=== PATIENT | male | born 1965 | race African-American/Black ===

== ENCOUNTER 2018-04-22 | Emergency (ER) | payer OTHER ==
[~2018-04-22] VITALS: Ht 167.6 cm; Wt 95.3 kg
[2018-04-22 00:40] LABS: URINE BILIRUBIN NEGATIVE (Negative); URINE BLOOD NEGATIVE (Negative); URINE CLARITY CLEAR; URINE COLOR YELLOW; URINE GLUCOSE-RANDOM* NEGATIVE (Negative); URINE KETONES NEGATIVE (Negative); URINE LEUKOCYTES-REFLEX NEGATIVE (Negative); URINE NITRITE-REFLEX NEGATIVE (Negative); URINE PROTEIN (DIPSTICK) NEGATIVE (Negative); URINE SPECIFIC GRAVITY >= 1.030 (1.005-1.035)
[2018-04-22 00:42] LABS: ABSOLUTE NEUTROPHILS 2.2 thou/uL (1.4-8.2); BASOPHILS 0.4 % (0.0-2.0); EOSINOPHILS 1.9 % (0.0-3.0); HEMATOCRIT 41.7 % (42.0-52.0); HEMOGLOBIN 14.1 gm/dL (14.0-18.0); LYMPHOCYTES 55.2 % (24.0-44.0); MCH 27.7 pg (26.0-34.0); MCHC 33.7 g/dL (28.0-37.0); MCV 82.1 fL (80.0-100.0); PLATELET COUNT 292 thou/uL (150-400); POLYS 35.5 % (36.0-66.0); RBC 5.08 mil/uL (4.50-6.00); RDW 13.6 % (10.5-14.5); WBC 6.1 thou/uL (4.0-11.0)
[2018-04-22 00:44] LABS: CALCIUM 8.7 mg/dL (8.5-10.1); CREATININE 1.1 mg/dL (0.7-1.3); POTASSIUM 3.8 mmol/L (3.5-5.1)
[2018-04-22 00:49] LABS: ALBUMIN 3.9 g/dL (3.4-5.0); TOTAL BILIRUBIN 0.7 mg/dL (<0.1-1.0); TOTAL PROTEIN 7.8 g/dL (6.4-8.2)
[2018-04-22] MEDS ORDERED: TRAMADOL 50 MG50 MG PO ×2 (01:24)
[2018-04-22] MEDS ORDERED: METFORMIN HCL500 MG PO (01:25)
[2018-04-22] MEDS ORDERED: ZOCOR20 MG PO (01:25)
[2018-04-22] MEDS ORDERED: ASPIRIN81 M2 PO (01:25)
[2018-04-22] MEDS ORDERED: GLIPIZIDE 10 MG10 MG PO (01:25)
[2018-04-22] MEDS ORDERED: MORPHINE SULFAT15 M3 PO (02:17)
[2018-04-22] MEDS ORDERED: MIRALAX17 GM PO (02:17)
[2018-04-22] MEDS ORDERED: SENNA S TABLET1 EACH PO (02:17)
[2018-04-22 02:35] VITALS: BP 152/90
== END 2018-04-22 02:35 | disposition home or self-care (01) ==
LOC: ER
PROVIDERS: Emergency Medicine
DX: R10.9 Unspecified abdominal pain (principal); E11.9 Type 2 diabetes mellitus without complications; E78.5 Hyperlipidemia, unspecified

== ENCOUNTER 2018-06-21 06:00 | Emergency (ER) | payer OTHER ==
[~2018-06-21] VITALS: Ht 167.6 cm; Wt 97.5 kg
[~2018-06-21 06:00] MED LIST: ASPIRIN81 M2 PO; GLIPIZIDE 10 MG10 MG PO; METFORMIN HCL500 MG PO; MIRALAX17 GM PO; MORPHINE SULFAT15 M3 PO; SENNA S TABLET1 EACH PO; TRAMADOL 50 MG50 MG PO; ZOCOR20 MG PO
[2018-06-21 06:58] LABS: HEMATOCRIT 40.9 % (42.0-52.0); HEMOGLOBIN 13.8 gm/dL (14.0-18.0); MCH 27.4 pg (26.0-34.0); MCHC 33.7 g/dL (28.0-37.0); MCV 81.3 fL (80.0-100.0); PLATELET COUNT 253 thou/uL (150-400); RBC 5.03 mil/uL (4.50-6.00); RDW 13.5 % (10.5-14.5)
[2018-06-21 07:05] LABS: CALCIUM 8.5 mg/dL (8.5-10.1); CREATININE 1.2 mg/dL (0.7-1.3); POTASSIUM 3.7 mmol/L (3.5-5.1)
[2018-06-21 07:11] LABS: ALBUMIN 3.6 g/dL (3.4-5.0); TOTAL BILIRUBIN 0.4 mg/dL (<0.1-1.0); TOTAL PROTEIN 7.5 g/dL (6.4-8.2)
[2018-06-21 07:54] LABS: URINE BILIRUBIN NEGATIVE (Negative); URINE BLOOD NEGATIVE (Negative); URINE CLARITY CLEAR; URINE COLOR YELLOW; URINE GLUCOSE-RANDOM* NEGATIVE (Negative); URINE KETONES 1+ (Negative); URINE LEUKOCYTES-REFLEX NEGATIVE (Negative); URINE NITRITE-REFLEX NEGATIVE (Negative); URINE PROTEIN (DIPSTICK) TRACE (Negative); URINE SPECIFIC GRAVITY >= 1.030 (1.005-1.035); URINE UROBILINOGEN 0.2 E.U./dl (0.2-1.0)
[2018-06-21 08:16] LABS: AMP/METHAMP Negative (Negative); BARBITURATES Negative (Negative); BENZODIAZEPINES Negative (Negative); COCAINE Negative (Negative); METHADONE Negative (Negative); OPIATES Negative (Negative); PCP Negative (Negative)
[2018-06-21] MEDS ORDERED: ACETAMINOPHEN-1 EAC1 PO (08:35)
[2018-06-21] MEDS ORDERED: NAPROSYN500 MG PO (08:35)
[2018-06-21 08:45] VITALS: BP 140/82
[2018-06-21 08:47] LABS: ABSOLUTE NEUTROPHILS 1.1 thou/uL (1.4-8.2); PLATELET ESTIMATE NORMAL
== END 2018-06-21 09:04 | disposition home or self-care (01) ==
LOC: ER 06:00
PROVIDERS: Emergency Medicine
DX: B34.9 Viral infection, unspecified (principal); R19.7 Diarrhea, unspecified; R51 Headache; M79.1 Myalgia; J06.9 Acute upper respiratory infection, unspecified; E11.9 Type 2 diabetes mellitus without complications; E78.5 Hyperlipidemia, unspecified

== ENCOUNTER 2020-01-09 02:24 | Inpatient (IN) | payer OTHER ==
[~2020-01-09] VITALS: Ht 167.6 cm; Wt 97.5 kg
[~2020-01-09 02:24] MED LIST changes: +ACETAMINOPHEN-1 EAC1 PO; +NAPROSYN500 MG PO
[2020-01-09 02:26] VITALS: BP 204/113
[2020-01-09 03:11] LABS: ABSOLUTE NEUTROPHILS 2.8 thou/uL (1.4-8.2); BASOPHILS 0.5 % (0.0-2.0); EOSINOPHILS 1.5 % (0.0-3.0); HEMATOCRIT 42.2 % (42.0-52.0); HEMOGLOBIN 13.6 gm/dL (14.0-18.0); LYMPHOCYTES 45.4 % (24.0-44.0); MCH 26.8 pg (26.0-34.0); MCHC 32.2 g/dL (28.0-37.0); MCV 83.2 fL (80.0-100.0); MONOCYTES 8.2 % (1.0-8.0); PLATELET COUNT 333 thou/uL (150-400); POLYS 44.4 % (36.0-66.0); RBC 5.07 mil/uL (4.50-6.00); RDW 13.5 % (10.5-14.5); WBC 6.3 thou/uL (4.0-11.0)
[2020-01-09 03:18] LABS: ANION GAP 7 mmol/L (7-16); BUN 12 mg/dL (7-18); CALCIUM 9.3 mg/dL (8.5-10.1); CHLORIDE 95 mmol/L (98-107); CO2 34 mmol/L (21-32); CREATININE 1.3 mg/dL (0.7-1.3); GLUCOSE 239 mg/dL (74-106); POTASSIUM 3.8 mmol/L (3.5-5.1); SODIUM 136 mmol/L (136-145)
[2020-01-09 03:28] LABS: ALBUMIN 3.8 g/dL (3.4-5.0); DIRECT BILIRUBIN 0.1 mg/dL (<0.1-0.2); LIPASE 237 U/L (73-393); SGOT 14 U/L (15-37); SGPT 15 U/L (30-65); TOTAL BILIRUBIN 0.8 mg/dL (<0.1-1.0); TROPONIN-I <0.06 ng/mL (<0.06)
[2020-01-09 06:03] VITALS: BP 153/87
[2020-01-09 06:52] VITALS: BP 153/92
[2020-01-09 08:18] VITALS: BP 160/92
--- NOTE | 2020-01-09 10:50 | NUR ---
PT ADMITTED FROM THE ER AT 0730. A&Ox4. CENTRAL LOWER ABDOMINAL PAIN THAT RAIDIATES UP RATED AT A 6. PT NPO. GI CONSULTED AND PT WILL HAVE A EGD THIS MORNING. ACHS WITH LOW SLIDING SCALE. ADMISSION COMPLETE. MONEY SENT TO SECURITY. UP INDEPENDENTLY. CALL LIGHT IN REACH.
--- NOTE | 2020-01-09 12:54 | EKG ---
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
[2020-01-09 16:14] VITALS: BP 171/105
[2020-01-09 21:45] VITALS: BP 136/83
[2020-01-10 03:20] VITALS: BP 152/99
--- NOTE | 2020-01-10 05:20 | NUR ---
PT AMBULATING TO BATHROOM INDEPENDENTLY AND IS TOLERATING WELL. FENTANYL PROVIDING PAIN RELIEF. DENIES NAUSEA. RESTING COMFORTABLY. NO NEEDS VOICED. CALL LIGHT WITHIN REACH. FREQUENT OBSERVATION.
[2020-01-10 06:35] LABS: HEMATOCRIT 39.1 % (42.0-52.0); HEMOGLOBIN 12.7 gm/dL (14.0-18.0); MCH 26.9 pg (26.0-34.0); MCHC 32.6 g/dL (28.0-37.0); MCV 82.6 fL (80.0-100.0); RBC 4.73 mil/uL (4.50-6.00); RDW 13.8 % (10.5-14.5)
[2020-01-10 06:45] LABS: CALCIUM 8.4 mg/dL (8.5-10.1); POTASSIUM 3.7 mmol/L (3.5-5.1)
[2020-01-10 06:52] LABS: ALBUMIN 3.2 g/dL (3.4-5.0); DIRECT BILIRUBIN 0.1 mg/dL (<0.1-0.2); TOTAL BILIRUBIN 0.8 mg/dL (<0.1-1.0); TOTAL PROTEIN 6.3 g/dL (6.4-8.2)
[2020-01-10 08:26] VITALS: BP 147/91
--- NOTE | 2020-01-10 10:14 | HC ---
[facility] [place] [address] CONSULTATION Name: ZO VARGAS Room #: 434-P ADM IN M.R.#: [id number] Admission: 01/09/20 Attend Phys: Nelson Milton MD Discharge: Date of : 67 Report #: [id number] THIS REPORT FOR: cc: [facility] - Clinic physician unknown [facility] - Clinic physician unknown Gomez Cortés MD ~ CC: Dr. Mccracken [facility] unknown Nelson Milton DATE OF SERVICE: 01/09/2020 HISTORY OF PRESENT ILLNESS: The patient is a 54-year-old male with complaints of midepigastric abdominal pain as well as pain that radiated into the back over the last week. This became progressively worse to the point where he was evaluated in the Emergency Room. He underwent a CT scan of the abdomen and pelvis earlier this morning, which showed mild fatty infiltration of the liver, gallbladder and spleen are unremarkable. Mild peripancreatic edema at the level of the pancreatic head and slight edema along the posterior aspect of the second portion of the duodenum suggesting manifestations of mild acute pancreatitis, although duodenitis could also give the same appearance. The patient does report intermittent heartburn symptoms. He denies any dysphagia. No previous history of upper endoscopy at least for many years. He does take aspirin on a regular basis. He denies any fevers or chills. No chest pain or shortness of breath. No previous history of pancreatitis. His lipase on admission is normal at 237. The patient reports taking Tums on a p.r.n. basis for heartburn. He denies any blood in his stools. He does complain of constipation more recently in the last few weeks. No history of colonoscopy. The patient is feeling better today, having much less pain. PAST MEDICAL HISTORY: Diabetes, previous history of kidney stone, degenerative joint disease. MEDICATIONS ON ADMISSION: Metformin, aspirin 81 mg, Glucotrol. REVIEW OF SYSTEMS: As per HPI. FAMILY HISTORY: Negative for colon cancer. SOCIAL HISTORY: He denies any smoking history. Reports rare alcohol use. PHYSICAL EXAMINATION: VITAL SIGNS: Temperature is 97.9, pulse 69, blood pressure 160/92, respiratory rate is 17. GENERAL: He is alert and oriented x3, in no acute distress. HEENT: Sclerae nonicteric. Oropharynx, clear. [address] [address] CONSULTATION Name: ZO VARGAS Room #: 434-P [facility] IN M.R.#: [id number] Admission: 01/09/20 Attend Phys: Nelson Milton MD Discharge: Date of : 67 Report #: [id number] NECK: Supple, without lymphadenopathy. CARDIOVASCULAR: Regular rate and rhythm. CHEST: Clear to auscultation bilaterally. ABDOMEN: Soft. He is mildly tender to palpation in the midepigastrium, nondistended, normoactive bowel sounds. EXTREMITIES: No cyanosis, clubbing, or edema. LABORATORY DATA: Sodium 136, potassium 3.8, chloride 95, bicarbonate 34, BUN 12, creatinine 1.3, glucose 239. AST 14, lipase 237, total bilirubin 0.8, alkaline phosphatase 113, ALT is 15, total protein 8.0, albumin 3.8. WBC is 6.3, hemoglobin 13.6, platelet count is 333. ASSESSMENT AND PLAN: Mid epigastric abdominal pain. The patient with possible pancreatitis changes on CT, however, lipase is normal, also possible duodenitis. He does have intermittent heartburn symptoms and is on aspirin on a daily basis increasing chance for possible peptic ulcer disease. We therefore discussed proceeding with an upper endoscopy next today for further evaluation. Agree with PPI therapy, which has already been started. I will make further recommendations after endoscopy. Thank you for allowing me to participate in his care. <ELECTRONICALLY SIGNED> By: Gomez Cortés MD 01/10/20 1014 1120 1213 Gomez Cortés MD /nt
--- NOTE | 2020-01-10 10:14 | P ---
[facility] [place] [address] PROCEDURE REPORT Name: ZO VARGAS Room #: 434-P ADM IN M.R.#: [id number] Admission: 01/09/20 Attend Phys: Nelson Milton MD Discharge: Date of : 67 Report #: [id number] THIS REPORT FOR: cc: [facility] - Clinic physician unknown [facility] - Clinic physician unknown Gomez Cortés MD ~ CC: Dr. Mccracken [facility] unknown Nelson Milton DATE OF SERVICE: 01/09/2020 PROCEDURE PERFORMED: Upper endoscopy with biopsies. HISTORY OF PRESENT ILLNESS: The patient is a 54-year-old male with mid epigastric abdominal pain ongoing for approximately 1 week, has become progressively worse. CT scan of the abdomen and pelvis on admission showing possible mild pancreatitis, possible duodenitis. Patient does report intermittent heartburn symptoms, takes Tums on a p.r.n. basis, also on aspirin. Denies any dysphagia. Lipase was normal. DESCRIPTION OF PROCEDURE: The risks and benefits of the procedure were explained to the patient, those risks including but not limited to bleeding, perforation and the risk of sedation. He understood these risks and gave informed consent. Sedation was given using propofol per anesthesia. Next, using a standard Olympus upper endoscope, the scope was placed in the patient's mouth and advanced under direct vision through the esophagus, stomach and into the second portion of the duodenum. The larynx was normal in appearance. The upper and mid esophagus was normal. In the distal esophagus, grade A erosive esophagitis was noted. Overall, the gastric mucosa was normal. Because of his abdominal pain, biopsies were obtained to rule out the possibility of H. pylori. The pylorus was normal and patent. The duodenal bulb, first and second portion and third portion were all normal. No evidence of inflammation or duodenitis was noted. No ulcers were seen. At this point, the scope was then withdrawn and the procedure terminated. The patient tolerated the procedure well. IMPRESSION: 1. Grade A erosive esophagitis. 2. Otherwise, normal upper endoscopy. RECOMMENDATIONS: 1. Await biopsy results. 2. Recommend daily PPI therapy. 3. Etiology of abdominal pain, likely secondary to pancreatitis. Lipase is normal at this time. Mild changes were noted on CT. Gallbladder normal. The patient denies any significant alcohol use. We would recommend advancing diet [facility] [address] [place] [address] PROCEDURE REPORT Name: ZO VARGAS Room #: 434-P ADM IN M.R.#: [id number] Admission: 01/09/20 Attend Phys: Nelson Milton MD Discharge: Date of : 67 Report #: [id number] slowly and monitoring labs. May need to consider EUS in the future. Thank you for allowing me to participate in his care. <ELECTRONICALLY SIGNED> By: Gomez Cortés MD 01/10/20 1014 1123 1157 Gomez Cortés MD /nt
--- NOTE | 2020-01-10 16:27 | NUR ---
PT ASSESSED AT START OF SHIFT. CONTINUING TO HAVE ABD PAIN. FENTANYL GIVEN W/ SOME RELIEF. PT C/O CONSTIPATION AND LAXATIVES NOT HELPING SO FAR. FLEETS ENEMA GIVEN PER ORDERS. PT REAMINS NPO. ABD ULTRASOUND AT PRESENT.
[2020-01-10 17:44] VITALS: BP 168/85
[2020-01-10 19:45] VITALS: BP 150/79
--- NOTE | 2020-01-11 02:54 | NUR ---
PT AMBULATING TO BATHROOM INDEPENDENTLY AND IS TOLEATING WELL. DENIES PAIN. DENIES NAUSEA. POSSIBLE DISCHARGE TO HOME 01/10. RESTING COMFORTABLY. NO NEEDS VOICED. CALL LIGHT WITHIN REACH. FREQUENT OBSERVATION.
--- NOTE | 2020-01-11 03:59 | NUR ---
CONT CARE. PT RESTING WELL IN BED NO DISTRESS. BY BEDSIDE. A&OX4 AD ANN AND CALL LIGHT IN PLACE. IV INTACT AND FLUIDS INFUISING WILL CONT TO MONITOR TILL EOS.
[2020-01-11 04:13] VITALS: BP 142/59
[2020-01-11 07:15] VITALS: BP 138/65
--- NOTE | 2020-01-11 13:36 | NUR ---
PT ADMITTED RELATED TO ABDOMINAL PAIN. CM REVIEWED CHART AND SPOKE WITH CARE TEAM. CM MET WITH PT AT BEDSIDE THIS DAY. PT IS A&O X4. CM ROLE INTRODUCED. PT INDICATED HE IS HERE VISITING FROM [place]. 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 PT HAS A PCP IN [place] WHO HE FOLLOWES WITH. PT INDICATED HE PLANS TO RETURN HOME ONCE MEDICALLY STABLE AND THAT HE ANTICIPATES NO NEEDS UPON DC. CM ABLE TO FOLLOW UP SHOULD KERI DC NEEDS ARISE.
[2020-01-11] MEDS ORDERED: PROTONIX40 M1 PO (14:30)
[2020-01-11 14:37] VITALS: BP 138/65
--- NOTE | 2020-01-11 14:49 | NUR ---
ASSUMED CARE OF THE PT AT 0700. PT IS NOT A FALL RISK, IS AMBULATORY. PT IS RA. NO C/O PAIN. 2 BM'S 01/10. REG DIET, TOLERATED WELL. BOWEL SOUNDS NORMAL. PT IS DISCHARGING TO HOME. IV DRY AND INTACT. WILL CONTINUE TO MONITOR THE PT.
== END 2020-01-11 15:43 | disposition home or self-care (01) | DRG 380 ==
LOC: ER 02:24 → 4S 05:31 → EROBS 05:31 → 4S 06:52
PROVIDERS: Emergency Medicine Emergency Medical Services; Nurse Practitioner Family; Physical Medicine & Rehabilitation; Specialist; ADMIT Internal Medicine
PROC: 0DB78ZX Excision of Stomach, Pylorus, Via Natural or Artificial Opening Endoscopic, Diagnostic (ICD-10-PCS; principal; 2020-01-09)
DX: K22.10 Ulcer of esophagus without bleeding (principal); K85.90 Acute pancreatitis without necrosis or infection, unspecified; E11.9 Type 2 diabetes mellitus without complications; E78.5 Hyperlipidemia, unspecified; M19.90 Unspecified osteoarthritis, unspecified site; M19.042 Primary osteoarthritis, left hand; M19.041 Primary osteoarthritis, right hand; M17.11 Unilateral primary osteoarthritis, right knee; K29.80 Duodenitis without bleeding; K59.00 Constipation, unspecified; Z87.442 Personal history of urinary calculi; Z79.899 Other long term (current) drug therapy
CPT/HCPCS: 10195; 62110; 62900

== ENCOUNTER 2020-08-20 22:11 | Emergency (ER) | payer OTHER ==
[~2020-08-20] VITALS: Ht 167.6 cm; Wt 96.2 kg
[~2020-08-20 22:11] MED LIST changes: +PROTONIX40 M1 PO
[2020-08-20 22:15] VITALS: BP 163/93
== END 2020-08-20 22:42 | disposition home or self-care (01) ==
LOC: ER 22:11
DX: I10 Essential (primary) hypertension (principal); E78.5 Hyperlipidemia, unspecified; E11.9 Type 2 diabetes mellitus without complications; M17.11 Unilateral primary osteoarthritis, right knee; M19.042 Primary osteoarthritis, left hand; M19.041 Primary osteoarthritis, right hand; Z79.899 Other long term (current) drug therapy; Z79.82 Long term (current) use of aspirin

== ENCOUNTER 2020-11-24 01:08 | Inpatient (IN) | payer OTHER ==
[~2020-11-24] VITALS: Ht 167.6 cm; Wt 93.0 kg
[2020-11-24 01:13] VITALS: BP 196/93
[2020-11-24 01:50] LABS: ABSOLUTE NEUTROPHILS 2.1 thou/uL (1.4-8.2); BASOPHILS 0.6 % (0.0-2.0); EOSINOPHILS 1.3 % (0.0-3.0); HEMATOCRIT 44.2 % (42.0-52.0); HEMOGLOBIN 14.3 gm/dL (14.0-18.0); LYMPHOCYTES 50.5 % (24.0-44.0); MCH 27.2 pg (26.0-34.0); MCHC 32.4 g/dL (28.0-37.0); MCV 83.9 fL (80.0-100.0); MONOCYTES 8.3 % (1.0-8.0); PLATELET COUNT 356 thou/uL (150-400); POLYS 39.3 % (36.0-66.0); RBC 5.27 mil/uL (4.50-6.00); RDW 13.7 % (10.5-14.5); WBC 5.4 thou/uL (4.0-11.0)
[2020-11-24 01:52] LABS: ANION GAP 9 mmol/L (7-16); BUN 12 mg/dL (7-18); CALCIUM 9.4 mg/dL (8.5-10.1); CHLORIDE 99 mmol/L (98-107); CO2 29 mmol/L (21-32); CREATININE 1.4 mg/dL (0.7-1.3); GLUCOSE 218 mg/dL (74-106); POTASSIUM 3.7 mmol/L (3.5-5.1); SODIUM 137 mmol/L (136-145)
[2020-11-24 02:03] LABS: ALBUMIN 4.1 g/dL (3.4-5.0); DIRECT BILIRUBIN 0.1 mg/dL (<0.1-0.2); LIPASE 408 U/L (73-393); SGOT 16 U/L (15-37); SGPT 22 U/L (16-63); TOTAL BILIRUBIN 0.9 mg/dL (0.2-1.0); TOTAL PROTEIN 8.1 g/dL (6.4-8.2); TROPONIN-I <0.06 ng/mL (<0.06)
[2020-11-24 03:21] LABS: URINE BILIRUBIN NEGATIVE (Negative); URINE BLOOD TRACE (Negative); URINE CLARITY CLEAR; URINE COLOR YELLOW; URINE GLUCOSE-RANDOM* 2+ (Negative); URINE KETONES TRACE (Negative); URINE LEUKOCYTES-REFLEX NEGATIVE (Negative); URINE NITRITE-REFLEX NEGATIVE (Negative); URINE PROTEIN (DIPSTICK) NEGATIVE (Negative); URINE SPECIFIC GRAVITY 1.025 (1.005-1.035); URINE UROBILINOGEN 0.2 E.U./dl (0.2-1.0)
[2020-11-24 06:24] LABS: CHOLESTEROL 304 mg/dL (<200); HDL CHOLESTEROL 48 mg/dL (>40); LDL CHOLESTEROL 228 mg/dL (<100); TC:HDL 6.3 Ratio (Not establshd); TRIGLYCERIDE 143 mg/dL (<150); VLDL 29 mg/dL (<40)
[2020-11-24 06:28] LABS: SERUM ASSESSMENT Clear
--- NOTE | 2020-11-24 07:19 | EKG ---
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 11/24/20 0719 0148 0148 Sterling Dolan MD, FACC /EPI
--- NOTE | 2020-11-24 10:24 | NUR ---
Patient admits from home with abd pain, diagnosed as Pancreatis. Patient has been patient here last year with same diagnosis. At that time he was visiting from [place]. He is A/Ox4. Attempted to call his cell phone no answer. casemgt will follow for dc planning.
[2020-11-24 12:24] VITALS: BP 143/78
[2020-11-24 12:45] VITALS: BP 152/82
[2020-11-24 13:14] VITALS: BP 159/81
--- NOTE | 2020-11-24 15:40 | NUR ---
ASSUMED AT 1200. PT DOES NOT COMPLAIN OF PAIN AT THIS MOMENT. HE STATES THAT MORPHINE WAS THE AM WAS GOOD FOR HIM. HE IS UP & AD ANN. SCD HOSE ARE IN PLACE. VSS. PT IS NPO AND TOLERATING WELL. CALL LIGHT WITHIN REACH. WILL CONTINUE TO MONITOR
[2020-11-24 17:00] VITALS: BP 189/88
[2020-11-24 19:36] VITALS: BP 149/79
[2020-11-25 01:06] LABS: GLYCOHEMOGLOBIN (HGB A1C) 11.7 % (4.8-5.6)
--- NOTE | 2020-11-25 02:29 | NUR ---
PT DENIED PAIN,N/V SO FAR.PT UP ADLIB IN HIS ROOM WITH A STEADY GAIT.PT CONT ON IVF ORDERED.PT REF HIS INSULIN AT HS SO HIS BG WILL NOT DROP DUE TO HIS NPO STATUS.PT ABLE TO MAKE HIS NEEDS KNOWN.CALL LIGHT WITHIN REACH.
[2020-11-25 03:49] VITALS: BP 134/75
[2020-11-25 06:30] LABS: ANION GAP 9 mmol/L (7-16); BUN 8 mg/dL (7-18); CALCIUM 8.4 mg/dL (8.5-10.1); CHLORIDE 104 mmol/L (98-107); CO2 26 mmol/L (21-32); CREATININE 1.1 mg/dL (0.7-1.3); GLUCOSE 126 mg/dL (74-106); POTASSIUM 3.9 mmol/L (3.5-5.1); SODIUM 139 mmol/L (136-145)
[2020-11-25 07:55] VITALS: BP 133/58
--- NOTE | 2020-11-25 08:00 | NUR ---
ASSUMED CARE AT 0700. PT IS A&O X4. PT IS TOLERATING ICE CHIPS WELL. IV ON R. AC IS INTACT AND SHOWS NO SIGNS OF REDNESS OR SWELLING. PT DENIES NAUSEA THIS AM. PT COMPLAINS OF PAIN SLIGHTLY BUT DOES NOT WANT MORPHINE UNTIL HE REALLY NEEDS THE MEDICATION. PT IS INDEPENDENT. CALL LIGHT WITHIN REACH. BSG WNL. VSS. WILL CONTINUE TO MONITOR.
[2020-11-25 09:06] LABS: CHOLESTEROL 223 mg/dL (<200); HDL CHOLESTEROL 39 mg/dL (>40); LDL CHOLESTEROL 166 mg/dL (<100); TC:HDL 5.7 Ratio (Not establshd); TRIGLYCERIDE 92 mg/dL (<150); VLDL 18 mg/dL (<40)
--- NOTE | 2020-11-25 10:38 | NUR ---
ASSESSMENT: REVIEWED CHART AND SPOKE WITH PT. PT REPORTS THAT HE IS CURRENTLY LIVING IN A HOUSE WITH HIS SON AND SISTER. PT REPORTS HAVING ABOUT 3 STEPS TO ENTER WITH NO HANDRAIL AND A FULL FLIGHT OF STEPS TO HIS BEDROOM WITH A HANDRAIL. PT REPORTS BEING FULLY INDEPENDENT WITH ADLS AND AMBULATION. PT IS SHOWING TO HAVING MEDICAID OF [place] AND REPORTS HE WAS LIVING THERE BUT WAS VISITING AND HAS BEEN STAYING HERE DUE TO THE PANDEMIC AND PLANS ON STAYING HERE FOR A WHILE UNTIL THINGS SETTLE. PT STATES HE IS UNSURE HIS MEDICAID IS STILL ACTIVE. CM NOTIFIED UR RN. PT REPORTS NO PCP HERE IS . CM PROVIDED PT WITH [facility] IF NEEDED AND FOLLOW UP CLINIC INFORMATION. PT REPORTS HE DOES NOT ANTICIPATE HAVING ANY NEEDS FRMO CM AT DISCHARGE. PT IS HERE FOR PANREATITIS. CM WILL CONTINUE TO FOLLOW TO ASSIST NEEDED.
[2020-11-25 19:55] VITALS: BP 166/90
--- NOTE | 2020-11-26 03:31 | NUR ---
PT UP ADLIB IN HIS ROOM WITH A STEADY GAIT.C/O PAIN TO HIS ABD,MANAGED WITH IV MED AND ZOFRAN PER PT'S REQUEST.PT DENIED N/V SO FAR.PT REF ICE CHIPS STATED THAT IT UPSETS HIS STOMACH.PT CONT ON IVF ORDERED.PT RESTING ON HIS BED AT THIS TIME BREATHING NORMAL AND NON LABORED.CALL LIGHT WITHIN REACH.
[2020-11-26 07:29] VITALS: BP 175/76
[2020-11-26 10:45] LABS: HEMATOCRIT 39.4 % (42.0-52.0); HEMOGLOBIN 12.9 gm/dL (14.0-18.0); MCH 27.2 pg (26.0-34.0); MCHC 32.8 g/dL (28.0-37.0); RBC 4.74 mil/uL (4.50-6.00); RDW 13.2 % (10.5-14.5)
[2020-11-26 10:55] LABS: CREATININE 1.1 mg/dL (0.7-1.3); MAGNESIUM 1.6 mg/dL (1.8-2.4)
[2020-11-26 10:59] LABS: CALCIUM 8.5 mg/dL (8.5-10.1)
--- NOTE | 2020-11-26 15:30 | NUR ---
ASSUMED CARE OF THE PATIENT AT 0715, PATIENT ALERT AND ORIENTED X 4. UP AD ANN IN ROOM. PATIENT C/O PAIN WITH ABDOMEN AREA, 06/20, PATIENT GIVEN MORPHINE 4 MG IV, WITH GOOD RELIEF. PATIENT IS NPO TO LET HIS BOWEL REST. RIGHT FOREARM IV IN PLACE, WITH NS AT 100CC/HR. PATIENT TOOK SHOWER, BED CHANGED. DR SOLIS HERE TO SEE THE PATIENT, MAY DISCHARGE TOMORROW. WILL CONTINUE TO MONITOR.
[2020-11-26 19:40] VITALS: BP 161/91
[2020-11-27 03:28] VITALS: BP 175/87
--- NOTE | 2020-11-27 04:54 | NUR ---
PATIENT ALERT AND ORIENTED X4. UP ADLIB IN ROOM. DENIES PAIN. GIVEN PRN MEDICATION FOR ELEVATED BP WITH MODERATE RESULTS. WILL MONITOR. IVF INFUSING W/O COMPLICATION. PATIENT STATES THAT REGLAN UPSETS HIS STOMACH. HE IS ANXIOUS TO RESUME HIS DIET AND WOULD LIKE TO BEGIN BEFORE HE GOES HOME. NO C/O OF N/V. RESTING QUIETLY.
[2020-11-27 08:29] VITALS: BP 182/91
[2020-11-27 17:08] VITALS: BP 188/98
--- NOTE | 2020-11-27 19:24 | NUR ---
PT CARE ASSUMED AT 0700. A&Ox4. PT TOLERATING CLEAR LIQUIDS WELL WITH NO N/V OR ABDOMINAL PAIN. ACHS WITH NO COVERAGE NEEDED. BP HIGH PT DENIES HISTORY OF ELEVATED BLOOD PRESSURE. IV PATENT WITH NO REDNESS OR EDEMA, SALINE LOCKED. FALL PROTOCOL IN PLACE. CALL LIGHT IN REACH
[2020-11-27 19:33] VITALS: BP 140/77
[2020-11-28 04:28] VITALS: BP 169/89
--- NOTE | 2020-11-28 05:44 | NUR ---
PATIENT ALERT AND ORIENTED X4. UP ADLIB IN ROOM. DENNIES PAIN. IVF INFUSING W/O COMPLICATION. BS MONITORED PER ORDER. DENIES N/V. TOLERATING CLEAR LIQUIDS. ANXIOUS TO GO HOME. SAT IN CHAIR UNTIL APPROX. 0030. RESTING IN BED AT TIME OF NOTE. WILL MONITOR.
[2020-11-28 06:40] LABS: ALBUMIN 3.1 g/dL (3.4-5.0); CALCIUM 8.6 mg/dL (8.5-10.1); CREATININE 1.1 mg/dL (0.7-1.3); MAGNESIUM 1.6 mg/dL (1.8-2.4); POTASSIUM 3.8 mmol/L (3.5-5.1); TOTAL PROTEIN 6.6 g/dL (6.4-8.2)
[2020-11-28 08:23] VITALS: BP 175/91
[2020-11-28] MEDS ORDERED: ACETAMINOPHEN325 M1 PO (13:09)
[2020-11-28] MEDS ORDERED: PANCREAZE DR 11 EAC2 PO (13:09)
[2020-11-28] MEDS ORDERED: PRINIVIL20 M1 PO (13:11)
[2020-11-28 13:40] VITALS: BP 175/91
--- NOTE | 2020-11-28 13:45 | NUR ---
PT ASSESSED AT START OF SHIFT. ABD PAIN GONE AND PT TOLERATING FULL LIQUIDS AND SOFT FOOD W/O NAUSEA OR PAIN. TEACHING DONE RE DIABETIC DIET AND CHECKING SUGARS MORE OFTEN. PT DISCHARGED AT THIS TIME W/ ALL BELONGINGS.
[2020-11-30] MEDS ORDERED: ZENPEP DR 10,01 EACH PO (09:52)
== END 2020-11-28 14:06 | disposition home or self-care (01) | DRG 440 ==
LOC: ER 01:08 → EROBS 03:26 → 4S 03:26
PROVIDERS: Emergency Medicine; Nurse Practitioner Family; ADMIT Internal Medicine; ATTEND Internal Medicine
DX: K85.80 Other acute pancreatitis without necrosis or infection (principal); I10 Essential (primary) hypertension; E11.9 Type 2 diabetes mellitus without complications; E78.5 Hyperlipidemia, unspecified; M17.11 Unilateral primary osteoarthritis, right knee; M54.31 Sciatica, right side; E66.9 Obesity, unspecified; Z20.822 Contact with and (suspected) exposure to COVID-19; Z87.442 Personal history of urinary calculi; Z79.899 Other long term (current) drug therapy; Z79.84 Long term (current) use of oral hypoglycemic drugs; Z68.33 Body mass index [BMI] 33.0-33.9, adult; Z28.21 Immunization not carried out because of patient refusal
CPT/HCPCS: 10102

== ENCOUNTER 2021-04-08 23:43 | Emergency (ER) | payer OTHER ==
[~2021-04-08] VITALS: Ht 167.6 cm; Wt 97.5 kg
[~2021-04-08 23:43] MED LIST changes: +ACETAMINOPHEN325 M1 PO; +CREON DR 12,001 EACH PO; +PANCREAZE DR 11 EAC2 PO; +PRINIVIL20 M1 PO; +ZENPEP DR 10,01 EACH PO
[2021-04-09 00:20] LABS: ABSOLUTE NEUTROPHILS 2.5 thou/uL (1.4-8.2); BASOPHILS 0.7 % (0.0-2.0); EOSINOPHILS 1.7 % (0.0-3.0); HEMATOCRIT 38.8 % (42.0-52.0); HEMOGLOBIN 13.1 gm/dL (14.0-18.0); LYMPHOCYTES 45.1 % (24.0-44.0); MCHC 33.7 g/dL (28.0-37.0); MCV 82.9 fL (80.0-100.0); MONOCYTES 8.3 % (1.0-8.0); PLATELET COUNT 309 thou/uL (150-400); POLYS 44.2 % (36.0-66.0); RBC 4.68 mil/uL (4.50-6.00); RDW 13.6 % (10.5-14.5); WBC 5.5 thou/uL (4.0-11.0)
[2021-04-09 00:29] LABS: ANION GAP 6 mmol/L (7-16); BUN 14 mg/dL (7-18); CALCIUM 9.1 mg/dL (8.5-10.1); CHLORIDE 102 mmol/L (98-107); CO2 29 mmol/L (21-32); CREATININE 1.2 mg/dL (0.7-1.3); GLUCOSE 413 mg/dL (74-106); POTASSIUM 3.9 mmol/L (3.5-5.1); SODIUM 137 mmol/L (136-145)
[2021-04-09 00:39] LABS: ALBUMIN 3.6 g/dL (3.4-5.0); LIPASE 119 U/L (73-393); SGOT 12 U/L (15-37); SGPT 20 U/L (16-63); TOTAL BILIRUBIN 0.4 mg/dL (0.2-1.0); TOTAL PROTEIN 7.4 g/dL (6.4-8.2); TROPONIN-I <0.06 ng/mL (<0.06)
[2021-04-09 01:00] VITALS: BP 147/83
--- NOTE | 2021-04-09 13:14 | EKG ---
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 : 1965 Requested By: Ally Bonds Order Number: [id number] MD: Manav Martínez Measurements Intervals [place] Rate: 82 P: 12 NH: 140 QRS: -23 QRSD: 93 T: -61 QT: 355 QTc: 415 Interpretive Statements Sinus rhythm Borderline left axis deviation Nonspecific T abnormalities, inferior leads Minimal ST elevation, anterior leads Baseline wander in lead(s) V4 Compared to ECG 11/24/2020 01:48:35 Electronically Signed On 04-09-2021 13:13:58 CDT by Manav Martínez [email or web address] <ELECTRONICALLY SIGNED> By: Manav Martínez MD 04/09/21 1313 2348 2348 Manav Martínez MD /GWEN
== END 2021-04-09 01:00 | disposition home or self-care (01) ==
LOC: ER 23:43
PROVIDERS: Emergency Medicine
DX: E11.65 Type 2 diabetes mellitus with hyperglycemia (principal); R07.89 Other chest pain